=== PATIENT | female | born 1975 | race Caucasian/White ===

== ENCOUNTER 2016-11-28 06:10 | Emergency (ER) | payer SELFPAY ==
[~2016-11-28] VITALS: Ht 162.6 cm; Wt 72.6 kg
[2016-11-28 06:27] VITALS: BP 128/60
[2016-11-28] MEDS ORDERED: AMOX500C PO (06:37)
[2016-11-28] MEDS ORDERED: HYDR-971 PO (06:37)
--- NOTE | 2016-11-28 06:45 | PHYS DOC ---
Past Medical History Past Medical History: No Pertinent History Past Surgical History: No Surgical History Alcohol Use: Occasionally Drug Use: None Adult General Chief Complaint Chief Complaint: EARACHE/EAR PAIN HPI HPI Patient is a 41 year old female who presents with left ear pain for 2 hours. It woke her from sleep and is severe. She's had no cold symptoms. No drainage from the ears. She used to have ear infections when she was a little kid but has not had them as an adult. No known allergies. Review of Systems Review of Systems Constitutional: Denies fever or chills [] Eyes: Denies change in visual acuity, redness, or eye pain [] HENT: Denies nasal congestion or sore throat [] Respiratory: Denies cough or shortness of breath [] Cardiovascular: Denies chest pain GI: Denies abdominal pain, nausea, vomiting, bloody stools or diarrhea [] : Denies dysuria or hematuria [] Musculoskeletal: Denies back pain or joint pain [] Integument: Denies rash or skin lesions [] Neurologic: Denies headache, focal weakness or sensory changes [] Current Medications Current Medications Current Medications Medications (Trade) Dose Ordered Sig/Edy Start Time Stop Time Status Last Admin Dose Admin Amoxicillin (Amoxil) 500 mg 1X ONCE 11/28/16 07:00 11/28/16 07:00 DC 11/28/16 06:49 500 MG Ibuprofen (Motrin) 800 mg 1X ONCE 11/28/16 07:00 11/28/16 07:00 DC 11/28/16 06:50 800 MG Allergies Allergies Allergies Coded Allergies Type Severity Reaction Last Updated Verified No Known Drug Allergies 01/24/15 No Physical Exam Physical Exam Constitutional: Well developed, well nourished, no acute distress, non-toxic appearance. Appears uncomfortable. HENT: Normocephalic, atraumatic, bilateral external ears normal, right EAC and TM normal, left EAC normal, left TM red and bulging, oropharynx moist, no oral exudates, nose normal. [] Eyes: conjunctiva normal, no discharge. [] Neck: Normal range of motion, no tenderness, supple, no stridor. [] Skin: Warm, dry, no erythema, no rash. [] Extremities: No tenderness, no cyanosis, no clubbing, ROM intact, no edema. [] Neurologic: Alert and oriented X 3, normal motor function, normal sensory function, no focal deficits noted. [] Current Patient Data Vital Signs Vital Signs Date Time Temp Pulse Resp B/P Pulse Ox O2 Delivery O2 Flow Rate FiO2 11/28/16 06:27 97.9 60 16 128/60 97 Room Air 97.9 EKG EKG [] Radiology/Procedures Radiology/Procedures [] Course & Med Decision Making Course & Med Decision Making Pertinent Labs and Imaging studies reviewed. (See chart for details) [] Dragon Disclaimer Dragon Disclaimer This electronic medical record was generated, in whole or in part, using a voice recognition dictation system. Departure Departure Impression: Primary Impression: Left otitis media Disposition: HOME, SELF-CARE Condition: STABLE Referrals: NO PCP (PCP) Patient Instructions: Otitis Media, Adult, [id number] Additional Instructions: For infection, amoxicillin 500 mg 3 times a day. You had your first dose in the emergency department this morning. Get it filled this morning and take your next dose about noon today. For pain, #1. Ibuprofen 800 mg 3 times a day, every 8 hours. Purchase [id number] 200 mg and take 4 at a time. Take with food and drink plenty of fluids while taking. #2. For more severe pain, hydrocodone as prescribed. This is a opiate medicine, do not take while working or driving. It will make you sleepy and dull your reflexes. It may be combined with ibuprofen. Also at the pharmacy purchase [id number] Sudafed and take as directed for congestion. Scripts Hydrocodone/Apap 5-325 ([place] 5-325 Tablet)1 Each Tablet1-2 Tab PO Q4-6HRS #10 TAB For severe pain, ear infection Prov:JAYDEN BAKER MD 11/28/16 Amoxicillin 500 Mg Capsule1 Cap PO TID #30 CAP For ear infection Prov:JAYDEN BAKER MD 11/28/16 JAYDEN BAKER MD Nov 28, 2016 06:45
[2016-11-28] MEDS ORDERED: IBUPROFEN 800 MG TABLET. PO ONE (07:00)
[2016-11-28] MEDS ORDERED: AMOXICILLIN 250 MG CAPSULE PO ONE (07:00)
== END 2016-11-28 06:53 | disposition home or self-care (01) ==
LOC: ER 06:10
DX: H66.92 Otitis media, unspecified, left ear (principal)
CPT/HCPCS: 99283

== ENCOUNTER 2017-06-04 11:30 | Emergency (ER) | payer SELFPAY ==
[~2017-06-04] VITALS: Ht 162.6 cm; Wt 72.6 kg
[~2017-06-04 11:30] MED LIST: AMOX500C PO; HYDR-971 PO
--- NOTE | 2017-06-04 12:19 | PHYS DOC ---
Past Medical History Past Medical History: No Pertinent History Past Surgical History: Alcohol Use: Occasionally Drug Use: None Adult General Chief Complaint Chief Complaint: ABDOMINAL PAIN HPI HPI Patient is a 42 year old female who presents with 2 days of generalized abdominal pain. Nausea without vomiting, no flatus but she had diarrhea this morning. Prior abdominal surgeries include to stare and. Subjective fevers yesterday, no previous similar symptoms. No exacerbating or relieving factors. She reports increased urinary frequency, intermittent dysuria, no vaginal discharge or irritation. No prior similar symptoms. Review of Systems Review of Systems Constitutional: Denies fever or chills Eyes: Denies eye pain or discharge HENT: Denies nasal congestion or sore throat Respiratory: Denies cough or shortness of breath [] Cardiovascular: Denies chest pain or edema GI: per hpi : per hpi Musculoskeletal: Denies back pain Extremities: denies joint pain [] Integument: Denies rash Neurologic: Denies headache, denies focal weakness , denies sensory changes [] Current Medications Current Medications Current Medications Medications (Trade) Dose Ordered Sig/Edy Start Time Stop Time Status Last Admin Dose Admin Hydromorphone HCl (Dilaudid) 1 mg 1X ONCE 06/04/17 12:45 06/04/17 13:31 DC Info (Do NOT chart on this entry -- for MONITORING) 1 each PRN DAILY PRN 06/04/17 13:15 06/04/17 15:15 DC Iohexol (Omnipaque 300 Mg/ml) 75 ml 1X ONCE 06/04/17 13:00 06/04/17 13:01 DC 06/04/17 13:33 75 ML Morphine Sulfate 4 mg 1X ONCE 06/04/17 12:30 06/04/17 12:31 DC 06/04/17 12:20 4 MG Ondansetron HCl (Zofran Odt) 4 mg 1X ONCE 06/04/17 12:30 06/04/17 12:31 DC 06/04/17 12:19 4 MG Sodium Monofluorophosphate (Fleet Adult) 133 ml 1X ONCE 06/04/17 14:00 06/04/17 14:11 DC Sodium Chloride 1,000 ml @ 1,000 mls/hr 1X ONCE 06/04/17 12:30 06/04/17 13:29 DC 06/04/17 12:19 1,000 MLS/HR Allergies Allergies Allergies Coded Allergies Type Severity Reaction Last Updated Verified No Known Drug Allergies 01/24/15 No Physical Exam Physical Exam Constitutional: Well developed, well nourished, appears in mild distress secondary to pain HENT: Normocephalic, atraumatic, bilateral external ears normal, oropharynx moist, no oral exudates, nose normal. [] Eyes: PERRLA, EOMI, conjunctiva normal, no discharge. [] Neck: Normal range of motion, no tenderness, supple, no stridor. [] Cardiovascular:Heart rate regular regular rhythm, no murmur [] Lungs & Thorax: Bilateral breath sounds clear to auscultation, no wheeze Abdomen: Highly distended, soft, generalized tenderness to palpation most prominent in the right upper quadrant and epigastric region, negative Zarate's, negative McBurney's, no peritoneal signs Skin: Warm, dry, no erythema, no rash. [] Back: No tenderness, no CVA tenderness. [] Extremities: No tenderness, no cyanosis, no clubbing, ROM intact, no edema. [] Neurologic: Alert and oriented X 3, normal motor function, normal sensory function, no focal deficits noted. [] Current Patient Data Vital Signs Vital Signs Date Time Temp Pulse Resp B/P (MAP) Pulse Ox O2 Delivery O2 Flow Rate FiO2 06/04/17 15:00 76 18 108/60 (76) 98 Room Air 06/04/17 11:50 98.5 98.5 Lab Values Laboratory Tests Test 06/04/17 11:00 06/04/17 11:48 06/04/17 12:15 06/04/17 12:25 POC Urine HCG, Qualitative Hcg negative (Negative) Urine Collection Type Unknown Urine Color Yellow Urine Clarity Clear Urine pH 6.0 Urine Specific [place] 1.020 Urine Protein Negative mg/dL (NEG-TRACE) Urine Glucose (UA) Negative mg/dL (NEG) Urine Ketones (Stick) Negative mg/dL (NEG) Urine Blood Moderate (NEG) Urine Nitrite Negative (NEG) Urine Bilirubin Negative (NEG) Urine Urobilinogen Dipstick 0.2 mg/dL (0.2 mg/dL) Urine Leukocyte Esterase Negative (NEG) Urine RBC Occ /HPF (0-2) Urine WBC 1-4 /HPF (0-4) Urine Squamous Epithelial Cells Many /LPF Urine Bacteria Few /HPF (0-FEW) Urine Mucus Marked /LPF White Blood Count 15.7 x10^3/uL (4.0-11.0) H Red Blood Count 4.48 x10^6/uL (3.50-5.40) Hemoglobin 13.7 g/dL (12.0-15.5) Hematocrit 40.0 % (36.0-47.0) Mean Corpuscular Volume 89 fL (79-100) Mean Corpuscular Hemoglobin 31 pg (25-35) Mean Corpuscular Hemoglobin Concent 34 g/dL (31-37) Red Cell Distribution Width 13.8 % (11.5-14.5) Platelet Count 322 x10^3/uL (140-400) Neutrophils (%) (Auto) 85 % (31-73) H Lymphocytes (%) (Auto) 9 % (24-48) L Monocytes (%) (Auto) 5 % (0-9) Eosinophils (%) (Auto) 1 % (0-3) Basophils (%) (Auto) 0 % (0-3) Neutrophils # (Auto) 13.3 x10^3uL (1.8-7.7) H Lymphocytes # (Auto) 1.4 x10^3/uL (1.0-4.8) Monocytes # (Auto) 0.8 x10^3/uL (0.0-1.1) Eosinophils # (Auto) 0.1 x10^3/uL (0.0-0.7) Basophils # (Auto) 0.0 x10^3/uL (0.0-0.2) Total Bilirubin 0.5 mg/dL (0.2-1.0) Direct Bilirubin 0.1 mg/dL (0.0-0.2) Aspartate Amino Transferase (AST) 14 U/L (15-37) L Alanine Aminotransferase (ALT) 19 U/L (14-59) Alkaline Phosphatase 93 U/L (46-116) Total Protein 7.1 g/dL (6.4-8.2) Albumin 3.4 g/dL (3.4-5.0) Lipase 81 U/L (73-393) POC Hemoglobin 14.3 g/dL (12-15) POC Hematocrit 42 % (36-40) H POC Sodium 136 mmol/L (135-145) POC Potassium 3.6 mmol/L (3.5-5.0) POC Chloride 102 mmol/L (98-110) POC Total CO2 26 mmol/L (23-32) Anion Gap 13 mmol/L (6-14) POC Blood Urea Nitrogen 11 mg/dL (8-26) POC Creatinine 0.6 mg/dL (0.5-1.4) Glucose Level 93 mg/dL (70-99) POC Ionized Calcium (Janie) 1.11 mmol/L (1.13-1.32) L Laboratory Tests 06/04/17 12:15 Laboratory Tests 06/04/17 12:25 EKG EKG [] Radiology/Procedures Radiology/Procedures CT abdomen and pelvis: IMPRESSION: 1. Circumferential colonic wall thickening with surrounding mild fat stranding in the right colon from the cecum through the hepatic flexure. Findings are most consistent with colitis (infectious or inflammatory). Underlying neoplasm would be difficult to exclude. 2. Mild colonic diverticulosis. The colonic wall thickening is not in any regions of diverticular tics, so diverticulitis is not a concern. 3. Hepatomegaly. 4. Myomatous uterus. Course & Med Decision Making Course & Med Decision Making Pertinent Labs and Imaging studies reviewed. (See chart for details) She was given Zofran, morphine, IV fluids while lab work and urinalysis obtained. CT abdomen and pelvis ordered. Pt improved after medication. CT findings reviewed, counseled pt on need to f/ u with GI and have possible colonscopy. Pt agreeable and dc'd with cipro and flagyl. Referred to local clinic, return precautions given. Dragon Disclaimer Dragon Disclaimer This electronic medical record was generated, in whole or in part, using a voice recognition dictation system. Departure Departure Impression: Primary Impression: Colitis Disposition: HOME, SELF-CARE Condition: STABLE Referrals: NO PCP (PCP) Scripts Ciprofloxacin Hcl (CIPRO) 500 Mg Tablet 1 TAB PO BID, #14 TAB Prov: MORGAN MENDENHALL MD 06/04/17 Metronidazole (FLAGYL) 500 Mg Tablet 1 TAB PO BID, #14 TAB Prov: MORGAN MENDENHALL MD 06/04/17 MORGAN MENDENHALL MD Jun 04, 2017 12:19
[2017-06-04 12:29] LABS: BASO % 0 % (0-3); EOS % 1 % (0-3); HEMOGLOBIN 13.7 g/dL (12.0-15.5); LYMPH # 1.4 x10^3/uL (1.0-4.8); LYMPH % 9 % (24-48); MEAN CORPUSCULAR HEMOGLOBIN 31 pg (25-35); MEAN CORPUSCULAR HGB CONC 34 g/dL (31-37); MEAN CORPUSCULAR VOLUME 89 fL (79-100); MONO % 5 % (0-9); NEUT % 85 % (31-73); PLATELET COUNT 322 x10^3/uL (140-400); RED BLOOD COUNT 4.48 x10^6/uL (3.50-5.40); RED CELL DISTRIBUTION WIDTH 13.8 % (11.5-14.5); WHITE BLOOD COUNT 15.7 x10^3/uL (4.0-11.0)
[2017-06-04] MEDS ORDERED: MORPHINE SULFATE 4 MG/ML DISP.SYRIN. IV ONE (12:30)
[2017-06-04] MEDS ORDERED: ONDANSETRON ODT 4 MG TAB.RAPDIS. PO ONE (12:30)
[2017-06-04] MEDS ORDERED: IV NORMAL SALINE 1000ML BAG 1,000 ML IV ONE (12:30)
[2017-06-04] MEDS ORDERED: HYDROmorphone 2 MG/ML VIAL IV ONE (12:45)
[2017-06-04 12:51] LABS: ALBUMIN 3.4 g/dL (3.4-5.0); DIRECT BILIRUBIN 0.1 mg/dL (0.0-0.2); TOTAL BILIRUBIN 0.5 mg/dL (0.2-1.0); TOTAL PROTEIN 7.1 g/dL (6.4-8.2)
[2017-06-04 12:58] LABS: BILIRUBIN,URINE NEGATIVE (NEG); GLUCOSE,URINE NEGATIVE (NEG)
[2017-06-04 12:59] LABS: BACTERIA,URINE FEW /HPF (0-FEW); NITRITE,URINE NEGATIVE (NEG); PROTEIN,URINE NEGATIVE (NEG-TRACE); RBC,URINE OCC /HPF (0-2); SQUAMOUS EPITHELIAL CELL,UR MANY /LPF; UROBILINOGEN,URINE 0.2 mg/dL (0.2 mg/dL)
[2017-06-04] MEDS ORDERED: IOHEXOL 300 MG/ML 75 ML VIAL IV ONE (13:00)
[2017-06-04] MEDS ORDERED: CONTRAST GIVEN MC PRN (13:15)
[2017-06-04 13:23] LABS: POTASSIUM ISTAT 3.6 mmol/L (3.5-5.0)
[2017-06-04] MEDS ORDERED: SODIUM PHOSPHATES 19/7GM 133 ML ENEMA. PR ONE (14:00)
--- NOTE | 2017-06-04 14:15 | RAD ---
CT ABDOMEN AND PELVIS WITH IV CONTRAST History: abd pain Comparison: CT abdomen dated 07/17/2004 Technique: After administration of intravenous contrast, helical CT of the abdomen and pelvis was performed from the lung bases through the ischial tuberosities. Axial and coronal reconstructions were obtained. 75 mL of Omnipaque 350 were used. Abdomen Findings: The visualized lung bases are clear. The liver is enlarged measuring 19.9 cm. It is otherwise normal. The spleen, pancreas, gallbladder, and bilateral adrenal glands are normal. Bilateral kidneys enhance symmetrically. There is no focal renal mass. There is no hydronephrosis. Visualized loops of small bowel are normal. Mild colonic diverticulosis. Circumferential colonic wall thickening in the right colon from the cecum through the hepatic flexure. Mild surrounding pericolonic fat stranding. There is no evidence of bowel obstruction. Appendix is normal in caliber. There is no free fluid. Prominent 0.9 x 1.8 cm lymph node near the descending colon (image 52, series 2) does not meet CT criteria for enlargement. Mild atherosclerosis of the normal caliber abdominal aorta and its branches. Pelvis findings: Urinary bladder is normal. Myomatous uterus. Normal bilateral ovaries. There is no free fluid. There is no pelvic or inguinal adenopathy. There is no acute bony abnormality. IMPRESSION: 1. Circumferential colonic wall thickening with surrounding mild fat stranding in the right colon from the cecum through the hepatic flexure. Findings are most consistent with colitis (infectious or inflammatory). Underlying neoplasm would be difficult to exclude. 2. Mild colonic diverticulosis. The colonic wall thickening is not in any regions of diverticular tics, so diverticulitis is not a concern. 3. Hepatomegaly. 4. Myomatous uterus. PQRS Compliance Statement: One or more of the following individualized dose reduction techniques were utilized for this examination: 1. Automated exposure control 2. Adjustment of the mA and/or kV according to patient size 3. Use of iterative reconstruction technique
[2017-06-04 15:00] VITALS: BP 108/60
[2017-06-04] MEDS ORDERED: METR500T PO (15:02)
[2017-06-04] MEDS ORDERED: CIPR500T94 PO (15:03)
== END 2017-06-04 15:15 | disposition home or self-care (01) ==
LOC: ER 11:30
DX: K52.9 Noninfective gastroenteritis and colitis, unspecified (principal)
CPT/HCPCS: 36415; 74177; 80047; 80076; 81001; 81025; 83690; 85027; 96361; 96374; 99285; C1887; J2270; J7030; Q0162; Q9967

== ENCOUNTER 2018-08-31 07:29 | Emergency (ER) | payer SELFPAY ==
[~2018-08-31] VITALS: Ht 162.6 cm; Wt 70.3 kg
[~2018-08-31 07:29] MED LIST changes: +CIPR500T94 PO; +METR500T PO
--- NOTE | 2018-08-31 07:54 | PHYS DOC ---
Past Medical History Past Medical History: No Pertinent History Past Surgical History: Alcohol Use: Occasionally Drug Use: Marijuana Adult General Chief Complaint Chief Complaint: PAIN ON URINATION HPI HPI Patient is a 43-year-old female presents to the emergency department for evaluation. She states that for the past month, she has had vaginal burning and pain. She has also had a clear vaginal discharge. She reports increased pain on urination, but she has not had any abnormal vaginal bleeding. She had a normal menstrual period about a week ago. She has not had any abdominal pain, nausea, vomiting. She has not had any fevers or chills. Urinating seems to worsen her symptoms. The patient is uncertain about her possibility of exposure to an STD. There are no alleviating or exacerbating factors to her symptoms otherwise. Review of Systems Review of Systems Constitutional: Denies fever or chills [] Eyes: Denies change in visual acuity, redness, or eye pain [] HENT: Denies nasal congestion or sore throat [] GI: Denies abdominal pain, nausea, vomiting, bloody stools or diarrhea [] : As per history of present illness[] Musculoskeletal: Denies back pain or joint pain [] Integument: Denies rash or skin lesions [] Neurologic: Denies headache, focal weakness or sensory changes [] Endocrine: Denies polyuria or polydipsia [] Current Medications Current Medications Current Medications Medications (Trade) Dose Ordered Sig/Edy Start Time Stop Time Status Last Admin Dose Admin Azithromycin (Zithromax) 1,000 mg 1X ONCE 08/31/18 08:45 08/31/18 08:46 DC 08/31/18 08:59 1,000 MG Ceftriaxone Sodium (Rocephin Im) 250 mg 1X ONCE 08/31/18 08:45 08/31/18 08:46 DC 08/31/18 09:00 250 MG Metronidazole (Flagyl) 2,000 mg 1X ONCE 08/31/18 08:45 08/31/18 08:46 DC 08/31/18 08:59 2,000 MG Allergies Allergies Allergies Coded Allergies Type Severity Reaction Last Updated Verified No Known Drug Allergies 01/24/15 No Physical Exam Physical Exam PHYSICAL EXAM: CONSTITUTIONAL: Well developed, well nourished HEAD: normocephalic, atraumatic EENT: PERRL, EOMI. Conjunctivae normal color, sclerae non-icteric; moist mucous membranes. NECK: Supple, non-tender; no meningismus. LUNGS: Lungs CTA, breathing even and unlabored. Normal air movement. HEART: Regular rate and rhythm, no murmur CHEST: No deformity; non-tender ABDOMEN: The abdomen is soft, and non-tender, no masses or bruits. EXTREM: Normal ROM; no deformity, no calf tenderness. Normal pulses palpable in all extremities. There is no pedal edema. SKIN: No rash; no diaphoresis NEURO: Alert; normal speech and cognition; CN's grossly intact; strength grossly intact without focal deficit. BACK: No CVA TTP. PELVIC EXAM: Normal external genitalia. There are no vaginal lesions visualized. There is a moderate amount of thin white vaginal discharge. The cervix otherwise appears normal. There is no cervical motion tenderness, adnexal tenderness to palpation or pelvic masses palpable. Exam was performed in the presence of the patient's nurse, Aria. Current Patient Data Vital Signs Vital Signs Date Time Temp Pulse Resp B/P (MAP) Pulse Ox O2 Delivery O2 Flow Rate FiO2 08/31/18 07:30 98.0 85 14 140/73 (95) 100 Room Air 98.0 Lab Values Laboratory Tests Test 08/31/18 07:40 08/31/18 08:07 Urine Collection Type Unknown Urine Color Yellow Urine Clarity Cloudy Urine pH 7.0 Urine Specific [place] 1.020 Urine Protein Negative mg/dL (NEG-TRACE) Urine Glucose (UA) Negative mg/dL (NEG) Urine Ketones (Stick) Negative mg/dL (NEG) Urine Blood Moderate (NEG) Urine Nitrite Negative (NEG) Urine Bilirubin Negative (NEG) Urine Urobilinogen Dipstick 0.2 mg/dL (0.2 mg/dL) Urine Leukocyte Esterase Large (NEG) Urine RBC 1-2 /HPF (0-2) Urine WBC 11-20 /HPF (0-4) Urine Squamous Epithelial Cells Many /LPF Urine Bacteria Many /HPF (0-FEW) Urine Mucus Marked /LPF Urine Trichomonas Present POC Urine HCG, Qualitative Hcg negative (Negative) Microbiology 08/31/18 Wet Prep - Final, Complete EKG EKG [] Radiology/Procedures Radiology/Procedures [] Course & Med Decision Making Course & Med Decision Making Pertinent Lab studies reviewed. (See chart for details) [9:05 AM:Patient remains stable. I discussed test results, the need for close follow-up, safe sex, need to inform partners, and return precautions.] Dragon Disclaimer Dragon Disclaimer This electronic medical record was generated, in whole or in part, using a voice recognition dictation system. Departure Departure Impression: Primary Impression: Trichomonas vaginitis Disposition: HOME, SELF-CARE Condition: STABLE Referrals: SOCRATES ALVAREZ Jr, MD Patient Instructions: Safe Sex, Sexually Transmitted Disease, Trichomoniasis YESSY MC MD Aug 31, 2018 07:54
[2018-08-31 08:20] LABS: BILIRUBIN,URINE NEGATIVE (NEG); CLARITY,URINE CLOUDY; COLOR,URINE YELLOW; NITRITE,URINE NEGATIVE (NEG); PROTEIN,URINE NEGATIVE (NEG-TRACE); UROBILINOGEN,URINE 0.2 mg/dL (0.2 mg/dL)
[2018-08-31 08:29] LABS: SQUAMOUS EPITHELIAL CELL,UR MANY /LPF
[2018-08-31 08:30] LABS: BACTERIA,URINE MANY /HPF (0-FEW); TRICHOMONAS,URINE PRESENT
[2018-08-31] MEDS ORDERED: AZITHROMYCIN 250 MG TABLET. PO ONE (08:45)
[2018-08-31] MEDS ORDERED: cefTRIAXone IM 250 MG VIAL IM ONE (08:45)
[2018-08-31] MEDS ORDERED: metroNIDAZOLE 500 MG TABLET PO ONE (08:45)
[2018-08-31 09:20] VITALS: BP 141/65
[2018-09-01 14:21] LABS: GC PROBE Negative (Negative)
== END 2018-08-31 09:33 | disposition home or self-care (01) ==
LOC: ER 07:29
DX: A59.01 Trichomonal vulvovaginitis (principal); R30.0 Dysuria; Z98.890 Other specified postprocedural states
CPT/HCPCS: 81001; 81025; 87086; 87491; 87591; 96372; 99284; J0696; Q0111; Q0144

== ENCOUNTER 2020-11-15 06:28 | Emergency (ER) | payer OTHER ==
[~2020-11-15] VITALS: Ht 160 cm; Wt 72.7 kg
[~2020-11-15 06:28] MED LIST changes: +HYDR-3164 PO; -HYDR-971 PO
[2020-11-15 07:44] LABS: BILIRUBIN,URINE NEGATIVE (NEG); CLARITY,URINE CLEAR; COLOR,URINE YELLOW; NITRITE,URINE NEGATIVE (NEG); PH,URINE 6.5 (<5.0-8.0); PROTEIN,URINE NEGATIVE (NEG-TRACE); UROBILINOGEN,URINE 0.2 mg/dL (0.2 mg/dL)
[2020-11-15 07:56] LABS: AMORPHOUS SEDIMENT,UR PRESENT /HPF; BACTERIA,URINE FEW /HPF (0-FEW); RBC,URINE RARE /HPF (0-2); WBC,URINE OCC /HPF (0-4)
--- NOTE | 2020-11-15 08:06 | ED.ADGEN ---
Past Medical History Past Medical History: No Pertinent History Past Surgical History: No Surgical History, Smoking Status: Current Every Day Smoker Alcohol Use: Occasionally Drug Use: Marijuana Social History Narrative: Pt states she smoked weed, meth and K2 a couple days ago General Adult EDM: Chief Complaint: VAGINAL BLEEDING HPI: HPI: Patient is a 45-year-old female presents to the emergency room complaining of vaginal bleeding. Patient has had a left-sided lower pelvic pain for several years that is unchanged. She had 2 days of vaginal bleeding which is the second time she has blood this month. She states that the bleeding was light. It is now stopped. She has not followed up with an [facility]. She denies any new changes. She denies any chance of being . She has not had any shortness of breath, chest pain, syncope. Review of Systems: Review of Systems: Complete ROS is negative unless otherwise documented in HPI Allergies: Allergies: Allergies Coded Allergies Type Severity Reaction Last Updated Verified No Known Drug Allergies 01/24/15 No Physical Exam: PE: General: Awake, alert, NAD. Well Nourished, well hydrated. Cooperative HEENT: Atraumatic, EOMI, PERRL, airway patent, moist oral mucosa Neck: Supple, trachea midline Respiratory: CTA bilaterally, normal effort, no wheezing/crackles CV: RRR, no murmur, cap refill <2 GI: Soft, nondistended, nontender, no masses MSK: No obvious deformities Skin: Warm, dry, intact Neuro: A&O x3, speech NL, sensory and motor grossly intact, no focal deficits Psych: Normal affect, normal mood, not suicidal or homicidal Current Patient Data: Labs: Laboratory Tests Test 11/15/20 07:03 11/15/20 07:06 Urine Collection Type Unknown Urine Color Yellow Urine Clarity Clear Urine pH 6.5 (<5.0-8.0) Urine Specific [place] 1.020 (1.000-1.030) Urine Protein Negative mg/dL (NEG-TRACE) Urine Glucose (UA) Negative mg/dL (NEG) Urine Ketones (Stick) Negative mg/dL (NEG) Urine Blood Moderate (NEG) Urine Nitrite Negative (NEG) Urine Bilirubin Negative (NEG) Urine Urobilinogen Dipstick 0.2 mg/dL (0.2 mg/dL) Urine Leukocyte Esterase Negative (NEG) Urine RBC Rare /HPF (0-2) Urine WBC Occ /HPF (0-4) Urine Squamous Epithelial Cells Occ /LPF Urine Amorphous Sediment Present /HPF Urine Bacteria Few /HPF (0-FEW) Urine Mucus Slight /LPF POC Urine HCG, Qualitative Hcg negative (Negative) Vital Signs: Vital Signs Date Time Temp Pulse Resp B/P (MAP) Pulse Ox O2 Delivery O2 Flow Rate FiO2 11/15/20 06:51 97.7 84 22 124/51 (75) 99 Room Air 97.7 EKG: EKG: [] Heart Score: Risk Factors: Risk Factors: DM, Current or recent (<one month) smoker, HTN, HLP, family history of CAD, obesity. Risk Scores: Score 0 - 3: 2.5% MACE over next 6 weeks - Discharge Home Score 4 - 6: 20.3% MACE over next 6 weeks - Admit for Clinical Observation Score 7 - 10: 72.7% MACE over next 6 weeks - Early Invasive Strategies Radiology/Procedures: Radiology/Procedures: [] Course & Med Decision Making: Course & Med Decision Making Pertinent Labs and Imaging studies reviewed. (See chart for details) Patient is a 45-year-old female who presents to the emergency room after 2 days of light bleeding and chronic left-sided abdominal pain. Abdominal pain is unchanged for several years. She has not noticed any kind of weight gain. She denies any vaginal discharge. Bleeding is now stopped. I have discussed with the patient that it would be appropriate to follow-up in an [facility] office where they can work her up for chronic pain and intermittent bleeding. At this time patient does not have any concerning signs of an acute pathology that would require emergent testing. UA is negative for infection. Patient is not . 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 Patient's test results and vitals while in the ED were fully reviewed and discussed with the patient. Patient is stable and at this time does not need admission to the hospital. We have discussed strict return precautions and the importance of following up with their Primary Care Physician. Patient stated understanding and was given an opportunity to ask any questions. Patient is in agreement with plan. Kai Disclaimer: Kai Disclaimer: This electronic medical record was generated, in whole or in part, using a voice recognition dictation system. Departure Departure Impression: Primary Impression: Vaginal bleeding Disposition: 01 DC HOME SELF CARE/HOMELESS Condition: STABLE Referrals: NO PCP (PCP) Patient Instructions: Uterine Bleeding, Dysfunctional Additional Instructions: Please follow up with OBGYN for further evaluation. CHRYSTAL BYERS MD Nov 15, 2020 08:06
[2020-11-15 08:34] VITALS: BP 125/60
== END 2020-11-15 08:34 | disposition home or self-care (01) ==
LOC: ER 06:28
DX: N93.9 Abnormal uterine and vaginal bleeding, unspecified (principal); R10.2 Pelvic and perineal pain; G89.29 Other chronic pain; R10.9 Unspecified abdominal pain; F17.200 Nicotine dependence, unspecified, uncomplicated
CPT/HCPCS: 81001; 81025; 99283

== ENCOUNTER 2021-04-12 07:54 | Emergency (ER) | payer OTHER ==
[~2021-04-12] VITALS: Ht 162.6 cm; Wt 68.2 kg
[2021-04-12 08:42] VITALS: BP 150/71
--- NOTE | 2021-04-12 08:45 | ED.ADGEN ---
Past Medical History Past Medical History: No Pertinent History Past Surgical History: No Surgical History, Smoking Status: Current Every Day Smoker Alcohol Use: Occasionally Drug Use: Marijuana General Adult EDM: Chief Complaint: COUGH HPI: HPI: Patient is a 45-year-old female who arrives ambulatory to the emergency department complaining of a week and a half long history of a cough. Patient reports in addition to a cough she has had a sore throat and right-sided neck pain which radiates into her shoulder. Patient states further that she has pain whenever she does cough in her chest however she does not have any at rest. She denies any shortness of air. She further denies any fevers. Additionally she denies any headaches. She is awake, alert and nontoxic-appearing Review of Systems: Review of Systems: Constitutional: Denies fever or chills. [] Eyes: Denies change in visual acuity. [] HENT: Reports sore throat. Denies nasal congestion. [] Respiratory: Reports cough or shortness of breath. [] Cardiovascular: Denies chest pain or edema. [] GI: Denies abdominal pain, nausea, vomiting, bloody stools or diarrhea. [] : Denies dysuria. [] Musculoskeletal: Reports neck pain. Denies back pain or joint pain. [] Integument: Denies rash. [] Neurologic: Denies headache, focal weakness or sensory changes. [] Endocrine: Denies polyuria or polydipsia. [] Lymphatic: Denies swollen glands. [] Psychiatric: Denies depression or anxiety. [] Allergies: Allergies: Allergies Coded Allergies Type Severity Reaction Last Updated Verified No Known Drug Allergies 01/24/15 No Physical Exam: PE: Constitutional: Well developed, well nourished, no acute distress, non-toxic appearance. [] HENT: Normocephalic, atraumatic, bilateral external ears normal, oropharynx moist, no oral exudates, nose normal. [] Eyes: PERRLA, EOMI, conjunctiva normal, no discharge. [] Neck: Normal range of motion, no tenderness, supple, no stridor. [] Cardiovascular:Heart rate regular rhythm, no murmur [] Lungs & Thorax: Bilateral breath sounds clear to auscultation [] Abdomen: Bowel sounds normal, soft, no tenderness, no masses, no pulsatile masses. [] Skin: Warm, dry, no erythema, no rash. [] Back: No tenderness, no CVA tenderness. [] Extremities: No tenderness, no cyanosis, no clubbing, ROM intact, no edema. [] Neurologic: Alert and oriented X 3, normal motor function, normal sensory function, no focal deficits noted. [] Psychologic: Affect normal, judgement normal, mood normal. [] Current Patient Data: Vital Signs: Vital Signs Date Time Temp Pulse Resp B/P (MAP) Pulse Ox O2 Delivery O2 Flow Rate FiO2 04/12/21 08:42 97.7 95 20 150/71 (97) 98 Room Air 97.7 EKG: EKG: [] Heart Score: C/O Chest Pain: No Risk Factors: Risk Factors: DM, Current or recent (<one month) smoker, HTN, HLP, family histo ry of CAD, obesity. Risk Scores: Score 0 - 3: 2.5% MACE over next 6 weeks - Discharge Home Score 4 - 6: 20.3% MACE over next 6 weeks - Admit for Clinical Observation Score 7 - 10: 72.7% MACE over next 6 weeks - Early Invasive Strategies Radiology/Procedures: Radiology/Procedures: [] Impression: [facility] [address] [facility] [place], [place] [id number] IMAGING REPORT Signed PATIENT: CHEMA FARRISACCOUNT: [id number] : 1975 LOCATION: ER AGE: 45 SEX: F EXAM STATUS: REG ER ORD. PHYSICIAN: ARVIND DIAZ DO REASON: COUGH PROCEDURE: CHEST AP ONLY XR CHEST 1V 04/12/2021 8:46 AM INDICATION: Cough COMPARISON: None available TECHNIQUE: Portable frontal view of the chest is provided. FINDINGS: The cardiomediastinal silhouette is within normal limits. Lungs are clear. There are no significant pleural effusions. There is no pulmonary vascular congestion. No pneumothorax. No suspicious osseous abnormality. IMPRESSION: There is no acute cardiopulmonary process. Electronically signed by: Brianna Tinoco MD (04/12/2021 8:56 AM) [id number] DICTATED and SIGNED BY: BRIANNA TINOCO MD DATE: 04/12/21 [id number] 0 Course & Med Decision Making: Course & Med Decision Making Pertinent Labs and Imaging studies reviewed. (See chart for details) [] Kai Disclaimer: Kai Disclaimer: This electronic medical record was generated, in whole or in part, using a voice recognition dictation system. Departure Departure Impression: Primary Impression: URI (upper respiratory infection) Additional Impressions: Cervical strain, acute Tobacco dependence Disposition: HOME / SELF CARE / HOMELESS Condition: STABLE Referrals: NO PCP (PCP) Patient Instructions: Muscle Strain, Upper Respiratory Infection, Adult Scripts Cyclobenzaprine Hcl (CYCLOBENZAPRINE HCL) 5 Mg Tablet 1 TAB PO TID for 5 Days, #15 TAB Prov: ARVIND DIAZ DO 04/12/21 Prednisone (PREDNISONE) 50 Mg Tablet 1 TAB PO DAILY for 5 Days, #5 TAB Prov: ARVIND DIAZ DO 04/12/21 Benzonatate (TESSALON PERLE) 100 Mg Capsule 1 CAP PO TID for cough for 5 Days, #15 CAP Prov: ARVIND DIAZ DO 04/12/21 Problem Qualifiers ARVIND DIAZ DO Apr 12, 2021 08:45
--- NOTE | 2021-04-12 08:58 | RAD ---
XR CHEST 1V 04/12/2021 8:46 AM INDICATION: Cough COMPARISON: None available TECHNIQUE: Portable frontal view of the chest is provided. FINDINGS: The cardiomediastinal silhouette is within normal limits. Lungs are clear. There are no significant pleural effusions. There is no pulmonary vascular congestion. No pneumothora x. No suspicious osseous abnormality. IMPRESSION: There is no acute cardiopulmonary process. Electronically signed by: Salome Tinoco MD (04/12/2021 8:56 AM) [id number]
[2021-04-12] MEDS ORDERED: CYCL5TAB PO (09:07)
[2021-04-12] MEDS ORDERED: BENZ100C PO (09:07)
[2021-04-12] MEDS ORDERED: PRED50TA PO (09:07)
== END 2021-04-12 09:39 | disposition home or self-care (01) ==
LOC: ER 07:54
DX: S16.1XXA Strain of muscle, fascia and tendon at neck level, initial encounter (principal); X50.9XXA Other and unspecified overexertion or strenuous movements or postures, initial encounter; J06.9 Acute upper respiratory infection, unspecified; F17.200 Nicotine dependence, unspecified, uncomplicated; Y93.89 Activity, other specified; Y92.89 Other specified places as the place of occurrence of the external cause; Y99.8 Other external cause status
CPT/HCPCS: 71045; 99283

== ENCOUNTER 2021-11-08 17:10 | Emergency (ER) | payer OTHER ==
[~2021-11-08 17:10] MED LIST changes: +BENZ100C PO; +CYCL5TAB PO; +PRED50TA PO
[2021-11-08] MEDS ORDERED: HYDR-2759 PO (23:47)
[2021-11-08] MEDS ORDERED: AMOX1TAB61 PO (23:47)
== END 2021-11-08 17:47 | disposition left against medical advice (07) ==
LOC: ER 17:10
DX: T14.8XXA Other injury of unspecified body region, initial encounter (principal); Z53.21 Procedure and treatment not carried out due to patient leaving prior to being seen by health care provider; W54.0XXA Bitten by dog, initial encounter; Y93.89 Activity, other specified; Y92.89 Other specified places as the place of occurrence of the external cause; Y99.8 Other external cause status

== ENCOUNTER 2021-11-08 21:25 | Emergency (ER) | payer OTHER ==
[~2021-11-08] VITALS: Ht 162.6 cm; Wt 68.2 kg
[2021-11-08 21:40] VITALS: BP 155/63
[2021-11-08] MEDS ORDERED: MORPHINE SULFATE 4 MG/ML INJ. IM ONE (23:00)
--- NOTE | 2021-11-08 23:09 | RAD ---
Exam: Left wrist 3 views. Left forearm 2 views INDICATION: Dog bite TECHNIQUE: Frontal, lateral oblique views of the left wrist. Frontal and lateral views the left forea rm Comparisons: None FINDINGS: Wrist: Bone mineralization is normal. No acute or healed fractures. Soft tissue gas noted at the distal fore arm. Joint spaces are well-maintained. Forearm: Bone mineralization is normal. No acute or healed fractures. Soft tissue gas at the distal forearm. J oint space is well-maintained. IMPRESSION: Soft tissue gas at the distal forearm without underlying osseous abnormality or radiopaque foreign kiarra dy identified. Electronically signed by: Dami Gan MD (11/08/2021 11:07 PM) LISBETH
--- NOTE | 2021-11-08 23:18 | PHYS DOC ---
Past Medical History Past Medical History: No Pertinent History Past Surgical History: Smoking Status: Current Every Day Smoker Alcohol Use: None Drug Use: Marijuana General Adult EDM: Chief Complaint: ANIMAL BITE HPI: HPI: 46-year-old female presents for evaluation after a dog bite. Patient's 11- month-old Labrador dog bit her left upper extremity this evening. Patient states she believes her dog's immunizations are up to date. Patient has multiple puncture wounds anterior and posterior left forearm and wrist.. There is associated swelling. Decreased ROM due to pain and swelling. Patients Td utd. Review of Systems: Review of Systems: Constitutional: Denies fever or chills. [] Eyes: Denies change in visual acuity. [] HENT: Denies nasal congestion or sore throat. [] Respiratory: Denies cough or shortness of breath. [] Cardiovascular: Denies chest pain or edema. [] GI: Denies abdominal pain, nausea, vomiting, bloody stools or diarrhea. [] : Denies dysuria. [] Musculoskeletal: Denies back pain or joint pain. [] Integument: Denies rash. [] Neurologic: Denies headache, focal weakness or sensory changes. [] Endocrine: Denies polyuria or polydipsia. [] Lymphatic: Denies swollen glands. [] Psychiatric: Denies depression or anxiety. [] Heart Score: C/O Chest Pain: N/A Risk Factors: Risk Factors: DM, Current or recent (<one month) smoker, HTN, HLP, family history of CAD, obesity. Risk Scores: Score 0 - 3: 2.5% MACE over next 6 weeks - Discharge Home Score 4 - 6: 20.3% MACE over next 6 weeks - Admit for Clinical Observation Score 7 - 10: 72.7% MACE over next 6 weeks - Early Invasive Strategies Current Medications: Current Medications Medications (Trade) Dose Ordered Sig/Edy Start Time Stop Time Status Last Admin Dose Admin Morphine Sulfate (Morphine Sulfate) 4 mg 1X ONCE 11/08/21 23:00 11/08/21 23:01 DC 11/08/21 22:44 4 MG Allergies: Allergies: Allergies Coded Allergies Type Severity Reaction Last Updated Verified No Known Drug Allergies 01/24/15 No Physical Exam: PE: General: alert, no acute distress. Skin: warm, dry and intact, no erythema, no rash. Multiple puncture wounds abrasions left distal forearm and wrist. HENT: bilateral external ears normal, oropharynx moist, nose normal. Head:: Normocephalic, atraumatic. Neck: Trachea midline. Eyes: EOMI, Normal conjunctiva, No drainage CARDIOVASCULAR: Regular rate and rhythm RESPIRATORY: No respiratory distress Back: Full range of motion. MUSCULOSKELETAL: Swelling left distal forearm and wrist. Decreased range of motion secondary to pain. GASTROINTESTINAL: Abdomen soft without rebound or guarding. NEUROLOGICAL: Alert and noted to person, place and time. No neurological deficits observed Psychiatric: Cooperative. Normal judgment Current Patient Data: Vital Signs: Vital Signs Date Time Temp Pulse Resp B/P (MAP) Pulse Ox O2 Delivery O2 Flow Rate FiO2 11/08/21 22:44 20 96 Room Air 11/08/21 21:40 98.1 85 155/63 (93) 98.1 EKG: EKG: [] Radiology/Procedures: Radiology/Procedures: [] Impression: FINDINGS: Wrist: Bone mineralization is normal. No acute or healed fractures. Soft tissue gas noted at the distal forearm. Joint spaces are well-maintained. Forearm: Bone mineralization is normal. No acute or healed fractures. Soft tissue gas at the distal forearm. Joint space is well-maintained. IMPRESSION: Soft tissue gas at the distal forearm without underlying osseous abnormality or radiopaque foreign body identified. Course & Med Decision Making: Course & Med Decision Making Pertinent Labs and Imaging studies reviewed. (See chart for details) [] Treated with Zosyn and morphine in the ER. X-rays no acute fractures. Wound was cleaned and dressed extremity placed in a splint. Patient was prescribed Augmentin and [place]. Patient advised to follow-up with wound care. Patient provided contact information advised to call to schedule appointment for follow- up within 2 to 3 days. Dragon Disclaimer: Dragon Disclaimer: This electronic medical record was generated, in whole or in part, using a voice recognition dictation system. Departure Departure Impression: Primary Impression: Dog bite Disposition: HOME / SELF CARE / HOMELESS Condition: STABLE Referrals: NO PCP (PCP) TATIANNA MARTINO MD Patient Instructions: Animal Bite Additional Instructions: Follow up with wound care in 3--5 days. Call to schedule appointment [phone]. Scripts Hydrocodone/Acetaminophen (Hydrocodone-Acetamin 5-325 mg) 1 Each Tablet 1 EACH PO Q4-6HRS, #20 TAB Prov: ANDREA SOUSA DO 11/08/21 Amoxicillin/Potassium Clav (AUGMENTIN 875-125 TABLET) 1 Each Tablet 1 TAB PO BID for 10 Days, #20 TAB 0 Refills Prov: ANDREA SOUSA DO 11/08/21 ANDREA SOUSA DO Nov 08, 2021 23:18
[2021-11-08] MEDS ORDERED: AMOX1TAB61 PO (23:47)
[2021-11-08] MEDS ORDERED: HYDR-2759 PO (23:47)
[2021-11-09] MEDS ORDERED: PIPERACILLIN/TAZOBACTAM 3.375 GM in IV NORMAL SALINE 50ML 50 ML IV ONE
[2021-11-09] MEDS ORDERED: KETOROLAC 30 MG/ML VIAL. IVP ONE (00:30)
[2021-11-13] MEDS ORDERED: HYDR-2761 PO (11:27)
== END 2021-11-09 00:57 | disposition home or self-care (01) ==
LOC: ER 21:25
DX: S51.852A Open bite of left forearm, initial encounter (principal); S61.552A Open bite of left wrist, initial encounter; F17.200 Nicotine dependence, unspecified, uncomplicated; W54.0XXA Bitten by dog, initial encounter; Y93.89 Activity, other specified; Y92.89 Other specified places as the place of occurrence of the external cause; Y99.8 Other external cause status
CPT/HCPCS: 73090; 73120; 96365; 96372; 96375; 99284; J1885; J2270; J2543